=== PATIENT | male | born 1975 ===

== ENCOUNTER 2019-04-03 12:45 | Outpatient (RCR) | payer OTHER ==
[2019-04-03 13:07] LABS: HEMOGLOBIN 14.4 G/DL (13.3-17.7); RED CELL DISTRIBUTION WIDTH 14.6 % (10.0-14.5); WHITE BLOOD COUNT 7.6 10^3/uL (4.3-11.0)
[2019-04-03 13:24] LABS: ALANINE AMINOTRANSFERASE 14 U/L (0-55); ALBUMIN 4.4 GM/DL (3.2-4.5); ALKALINE PHOSPHATASE 49 U/L (40-136); BILIRUBIN,TOTAL 0.3 MG/DL (0.1-1.0); BUN/CREATININE RATIO 25; CALCIUM 9.3 MG/DL (8.5-10.1); CARBON DIOXIDE 25 MMOL/L (21-32); CHLORIDE 105 MMOL/L (98-107); CREATININE SERUM 0.81 MG/DL (0.60-1.30); GFR ESTIMATED > 60; GLUCOSE 95 MG/DL (70-105); POTASSIUM 4.1 MMOL/L (3.6-5.0); SODIUM 137 MMOL/L (135-145); TOTAL PROTEIN 7.4 GM/DL (6.4-8.2)
== END 2019-07-02 | disposition home or self-care (01) ==
LOC: LAB 12:45
PROVIDERS: ATTEND Urology
DX: N46.9 Male infertility, unspecified (principal); N50.89 Other specified disorders of the male genital organs
CPT/HCPCS: 36415; 80053; 82105; 83615; 84403; 84702; 85027; 89320

== ENCOUNTER → 2019-04-05 | Outpatient (CLI) | payer OTHER ==
--- NOTE | 2019-04-05 14:37 | Diagnostic Imaging Report ---
PROCEDURE: US Scrotum. TECHNIQUE: Multiple real-time grayscale images were obtained over the scrotum in various projections bilaterally. INDICATION: Left scrotal mass for 5 to 6 years. COMPARISON: None. FINDINGS: The right testicle is normal in size, shape, and echogenicity. The right testicle measures 3.4 x 1.6 x 2.5 cm. There is normal color Doppler flow within the right testicle. No focal mass is seen. The left testicle measures 3.4 x 1.5 x 2.7 cm. There is normal echogenicity of the left testicle. There is a heterogeneous mass arising superiorly from the left testicle measuring 4.1 x 2.1 x 3.6 cm with a large portion of the mass demonstrating shadowing and echogenic foci which may represent calcification. A smaller hypoechoic area is seen adjacent to the left testicle measuring 1.3 x 0.7 x 1.2 cm. The left epididymis is not well-visualized due to the large mass within the left scrotum. No evidence of hydrocele. IMPRESSION: 1. Large heterogeneous mass arising superiorly from the left testicle. This may represent a testicular lesion versus mass within the left epididymis, which is not well-visualized on this exam. Testicular teratoma may have this heterogeneous appearance with focal calcifications. Consider further evaluation with CT of the abdomen and pelvis with inclusion of the testicles to further characterize. Surgical consultation is also recommended. Dictated by: Dictated on workstation # [id number]
== END ==
LOC: EDUNIT# 09:15 → RAD 09:24
PROVIDERS: ATTEND Urology
DX: N50.89 Other specified disorders of the male genital organs (principal)
CPT/HCPCS: 76870

== ENCOUNTER → 2019-04-10 | Outpatient (CLI) | payer OTHER ==
--- NOTE | 2019-04-10 16:35 | Diagnostic Imaging Report ---
PROCEDURE: CT abdomen and pelvis without contrast. TECHNIQUE: Multiple contiguous axial images were obtained through the abdomen and pelvis without the use of intravenous contrast. Auto Exposure Controls were utilized during the CT exam to meet ALARA standards for radiation dose reduction. INDICATION: Testicular lesion. COMPARISON: 04/05/2019 FINDINGS: The visualized lung bases are clear. The unenhanced liver, spleen, adrenal glands, and pancreas are unremarkable. The gallbladder is decompressed. Small nonobstructing right renal calculi. The bilateral kidneys and ureters are otherwise unremarkable. No aneurysmal dilatation of the abdominal aorta. The urinary bladder is predominantly decompressed, therefore not well evaluated. No bowel obstruction or pneumatosis. Suggestion of a 3 cm hyperdense mass associated with the superior aspect of the left testicle or immediately superior to the left testicle. This corresponds to recent ultrasound. No significant adenopathy, free air, or free fluid within the abdomen or pelvis. Scattered osseous degenerative changes without acute osseous abnormality. IMPRESSION: 3 cm hyperdense mass either within the superior aspect of the left testicle or abutting the superior aspect of the left testicle corresponding to recent ultrasound. No definitive characteristics on this examination to characterize this lesion. However, given appearance on recent ultrasound with a rounded lamellated appearance, this is suggestive of a possible epidermoid cyst/keratocyst. Teratoma is an additional consideration. Germ cell neoplasm not definitively excluded based upon this examination. MRI of the pelvis/scrotum with and without contrast may help to further evaluate this lesion as clinically indicated. Small nonobstructing right renal calculus. No adenopathy. Dictated by: Dictated on workstation # [id number]
== END ==
LOC: RAD 15:49
PROVIDERS: ATTEND Urology
DX: N20.0 Calculus of kidney (principal); N50.89 Other specified disorders of the male genital organs
CPT/HCPCS: 74176